=== PATIENT | female | born 1940 | race Caucasian/White ===

== ENCOUNTER 2017-08-09 13:52 | Inpatient (IN) | payer OTHER ==
[2017-08-09] MEDS: DIPHTH/TET/ACEL PERTUSS (ADULT) 0.5 ML VIAL IM (15:09)
[2017-08-09] MEDS: LIDOCAINE 1% (MDV) 10 ML INJ INJ (15:09)
[2017-08-09] MEDS: SOD CHLORIDE 0.9% 500 ML IV ×2 (15:09→16:24)
[2017-08-09 15:39] LABS: ADD MAN DIFF? NO
[2017-08-09 15:45] LABS: WHITE BLOOD COUNT 4.2 10^3/ul (4.8-10.8)
[2017-08-09 15:45] LABS: ABNORMAL IP MESSAGE 1; BASOPHILS % 0.2 % (0.0-2.0); EOSINOPHILS % 0.5 % (0.0-7.0); HEMATOCRIT 37.1 % (37.0-47.0); HEMOGLOBIN 13.6 g/dl (12.0-16.0); LYMPHOCYTES # 0.5 10^3/ul (0.8-2.9); LYMPHOCYTES % 11.8 % (15.0-51.0); MEAN CORPUSCULAR HEMOGLOBIN 29.7 pg (29.0-33.0); MEAN CORPUSCULAR HGB CONC 36.7 g/dl (32.0-37.0); MEAN PLATELET VOLUME 8.6 fl (7.4-10.4); MONOCYTE # 0.6 10^3/ul (0.3-0.9); MONOCYTES % 13.5 % (0.0-11.0); NEUTROPHILS % 73.3 % (39.0-77.0); PLATELET COUNT 255 10^3/UL (140-415); RED BLOOD COUNT 4.58 10^6/ul (4.20-5.40)
[2017-08-09 15:51] LABS: POSITIVE DIFF @See below
[2017-08-09 16:04] LABS: ANION GAP 17 (8-16); BLOOD UREA NITROGEN 13 mg/dl (7-20); CALCIUM 8.5 mg/dl (8.4-10.2); CARBON DIOXIDE 29 mmol/L (21-31); CHLORIDE 71 mmol/L (97-110); CREATININE 0.64 mg/dl (0.44-1.00); GLUCOSE 108 mg/dl (70-220)
[2017-08-09 16:08] LABS: POTASSIUM 2.7 mmol/L (3.5-5.1); SODIUM 114 mmol/L (135-144)
[2017-08-09] MEDS ORDERED: D5W-0.45 NACL + KCL 40 MEQ 1,000 ML IV (16:11)
[2017-08-09] MEDS: POTASSIUM CHLORIDE (SR) 20 MEQ TAB PO ×2 (16:27→18:51)
[2017-08-09 16:48] LABS: ADD UMIC NO; UR ASCORBIC ACID NEGATIVE (NEGATIVE); UR BILIRUBIN (Dip) NEGATIVE (NEGATIVE); UR BLOOD (Dip) NEGATIVE (NEGATIVE); UR CLARITY CLEAR (CLEAR); UR COLOR YELLOW (YELLOW); UR GLUCOSE (Dip) NEGATIVE (NEGATIVE); UR KETONES (Dip) 1+ mg/dL (NEGATIVE); UR LEUKOCYTE ESTERASE (Dip) NEGATIVE Leu/ul (NEGATIVE); UR NITRITE (Dip) NEGATIVE (NEGATIVE); UR SPECIFIC GRAVITY (Dip) 1.009 (1.003-1.030); UR TOTAL PROTEIN (Dip) NEGATIVE (NEGATIVE); UR UROBILINOGEN (Dip) NEGATIVE (NEGATIVE)
[2017-08-09 16:52] LABS: SODIUM,URINE RANDOM 54 mmol/L (30-90)
[2017-08-09 16:52] LABS: POTASSIUM,URINE RANDOM 28.9 mmol/L (25-125)
[2017-08-09 18:21] LABS: OSMOLALITY 232 mOsm/kg (280-295)
[2017-08-09 18:44] LABS: ANION GAP 15 (8-16); BLOOD UREA NITROGEN 11 mg/dl (7-20); CALCIUM 7.9 mg/dl (8.4-10.2); CARBON DIOXIDE 27 mmol/L (21-31); CHLORIDE 78 mmol/L (97-110); CREATININE 0.59 mg/dl (0.44-1.00); GLUCOSE 93 mg/dl (70-220)
[2017-08-09 18:51] LABS: POTASSIUM 2.7 mmol/L (3.5-5.1); SODIUM 117 mmol/L (135-144)
[2017-08-09 19:37] LABS: OSMOLALITY,URINE 312 mOsm/kg (250-1200)
[2017-08-09] MEDS ORDERED: LABETALOL HCL 20MG INJ IV (20:00)
[2017-08-09] MEDS: ENOXAPARIN 40 MG/0.4 ML SYG SC (20:12)
[2017-08-09] MEDS: ATORVASTATIN 10 MG TAB PO (20:23)
[2017-08-09] MEDS: MONTELUKAST 10 MG TAB PO (20:23)
[2017-08-09] MEDS: POTASSIUM CHLORIDE 40 MEQ in SOD CHLORIDE 0.9% 1,000 ML IV (20:23)
[2017-08-09] MEDS ORDERED: GLUCAGON 1 MG INJ IM (20:30)
[2017-08-09] MEDS ORDERED: GLUCOSE GEL 15 GRAM TUBE PO ×2 (20:30)
[2017-08-09] MEDS ORDERED: GLUCOSE GEL 15 GRAM TUBE BUCCAL (20:30)
[2017-08-09] MEDS ORDERED: DEXTROSE 50% 50 ML SYRINGE IV ×2 (20:30)
[2017-08-09] MEDS: LORAZEPAM 1 MG TAB PO (21:00)
[2017-08-09 22:54] LABS: ANION GAP 15 (8-16); BLOOD UREA NITROGEN 11 mg/dl (7-20); CARBON DIOXIDE 29 mmol/L (21-31); CHLORIDE 86 mmol/L (97-110); CREATININE 0.71 mg/dl (0.44-1.00); GLUCOSE 130 mg/dl (70-220); POTASSIUM 4.3 mmol/L (3.5-5.1); SODIUM 126 mmol/L (135-144)
[2017-08-10] MEDS: ACCU-CHEK XX (02:00)
[2017-08-10 03:27] LABS: ANION GAP 12 (8-16); BLOOD UREA NITROGEN 12 mg/dl (7-20); CALCIUM 8.8 mg/dl (8.4-10.2); CARBON DIOXIDE 27 mmol/L (21-31); CHLORIDE 94 mmol/L (97-110); CREATININE 0.67 mg/dl (0.44-1.00); GLUCOSE 140 mg/dl (70-220); POTASSIUM 4.2 mmol/L (3.5-5.1); SODIUM 129 mmol/L (135-144)
[2017-08-10] MEDS: ACETAMINOPHEN 325 MG TAB PO (03:48)
[2017-08-10] MEDS: DEXTROSE 5% 1,000 ML IV ×3 (04:35→21:49)
[2017-08-10] MEDS: INSULIN ASPART [NOVOLOG] 3 ML PEN SC ×3 (08:00→17:42)
[2017-08-10 08:49] LABS: ANION GAP 13 (8-16); BLOOD UREA NITROGEN 12 mg/dl (7-20); CALCIUM 9.1 mg/dl (8.4-10.2); CARBON DIOXIDE 27 mmol/L (21-31); CHLORIDE 92 mmol/L (97-110); CREATININE 0.65 mg/dl (0.44-1.00); GLUCOSE 157 mg/dl (70-220); POTASSIUM 3.7 mmol/L (3.5-5.1); SODIUM 128 mmol/L (135-144)
[2017-08-10] MEDS: FLUTICASONE 0.05% 16 GM NAS SPRAY NASAL (09:00)
[2017-08-10] MEDS: ENOXAPARIN 40 MG/0.4 ML SYG SC (10:18)
[2017-08-10 12:39] LABS: ANION GAP 14 (8-16); BLOOD UREA NITROGEN 11 mg/dl (7-20); CALCIUM 8.7 mg/dl (8.4-10.2); CARBON DIOXIDE 27 mmol/L (21-31); CHLORIDE 90 mmol/L (97-110); CREATININE 0.66 mg/dl (0.44-1.00); GLUCOSE 185 mg/dl (70-220); POTASSIUM 3.8 mmol/L (3.5-5.1); SODIUM 127 mmol/L (135-144)
[2017-08-10] MEDS: LISINOPRIL 20 MG TAB PO ×2 (14:14→21:48)
[2017-08-10 16:14] LABS: ANION GAP 16 (8-16); BLOOD UREA NITROGEN 12 mg/dl (7-20); CALCIUM 8.7 mg/dl (8.4-10.2); CARBON DIOXIDE 23 mmol/L (21-31); CHLORIDE 91 mmol/L (97-110); CREATININE 0.56 mg/dl (0.44-1.00); GLUCOSE 131 mg/dl (70-220); POTASSIUM 3.6 mmol/L (3.5-5.1); SODIUM 126 mmol/L (135-144)
[2017-08-10] MEDS: DEXTROSE 5% 250 ML IV (16:30)
[2017-08-10 20:35] LABS: ANION GAP 16 (8-16); BLOOD UREA NITROGEN 14 mg/dl (7-20); CARBON DIOXIDE 28 mmol/L (21-31); CHLORIDE 88 mmol/L (97-110); CREATININE 0.63 mg/dl (0.44-1.00); GLUCOSE 82 mg/dl (70-220); POTASSIUM 4.1 mmol/L (3.5-5.1); SODIUM 128 mmol/L (135-144)
[2017-08-10] MEDS: ATORVASTATIN 10 MG TAB PO (21:50)
[2017-08-10] MEDS: MONTELUKAST 10 MG TAB PO (21:51)
[2017-08-10] MEDS: LORAZEPAM 1 MG TAB PO (22:02)
[2017-08-11] MEDS: ACCU-CHEK XX (01:30)
[2017-08-11] MEDS: FLUTICASONE 0.05% 16 GM NAS SPRAY NASAL ×2 (05:32→09:28)
[2017-08-11] MEDS: DEXTROSE 5% 1,000 ML IV (05:39)
[2017-08-11] MEDS: ALBUTEROL HFA 8 GM INHALER INH ×2 (05:55→09:28)
[2017-08-11 06:02] LABS: ANION GAP 13 (8-16); BLOOD UREA NITROGEN 10 mg/dl (7-20); CALCIUM 8.9 mg/dl (8.4-10.2); CARBON DIOXIDE 27 mmol/L (21-31); CHLORIDE 89 mmol/L (97-110); CREATININE 0.58 mg/dl (0.44-1.00); GLUCOSE 150 mg/dl (70-220); POTASSIUM 3.4 mmol/L (3.5-5.1); SODIUM 126 mmol/L (135-144)
[2017-08-11] MEDS: LISINOPRIL 20 MG TAB PO (09:06)
[2017-08-11] MEDS: INSULIN ASPART [NOVOLOG] 3 ML PEN SC ×2 (09:10→12:51)
[2017-08-11] MEDS: ENOXAPARIN 40 MG/0.4 ML SYG SC (09:11)
[2017-08-11 12:21] LABS: ANION GAP 15 (8-16); BLOOD UREA NITROGEN 9 mg/dl (7-20); CARBON DIOXIDE 26 mmol/L (21-31); CHLORIDE 92 mmol/L (97-110); GLUCOSE 156 mg/dl (70-220); POTASSIUM 3.5 mmol/L (3.5-5.1); SODIUM 129 mmol/L (135-144)
[2017-08-11] MEDS: ALBUTEROL 0.083% (NEB) 2.5 MG/3 ML AMP HHN (13:11)
[2017-08-11] MEDS: LORAZEPAM 0.5 MG TAB PO (15:30)
== END 2017-08-11 18:25 | disposition home health service (06) | DRG 605 ==
LOC: ICU 17:23 → MS1 08-10 07:47 → E/R 13:52 → MS1 08-10 17:29
PROC: 0HQ0XZZ Repair Scalp Skin, External Approach (ICD-10-PCS; principal; 2017-08-09)
DX: S01.01XA Laceration without foreign body of scalp, initial encounter (principal); E87.1 Hypo-osmolality and hyponatremia; E11.9 Type 2 diabetes mellitus without complications; I10 Essential (primary) hypertension; R42 Dizziness and giddiness; E87.6 Hypokalemia; F41.9 Anxiety disorder, unspecified; J45.909 Unspecified asthma, uncomplicated; W18.30XA Fall on same level, unspecified, initial encounter; Y92.009 Unspecified place in unspecified non-institutional (private) residence as the place of occurrence of the external cause; Z79.82 Long term (current) use of aspirin
CPT/HCPCS: 70450; 71045; 80048; 81003; 82436; 82962; 83930; 83935; 84133; 84300; 84484; 85025; 87081; 90471; 90715; 93005; 94664; 96372; 96374; 97162; 99291-25

== ENCOUNTER 2017-11-04 17:24 | Emergency (ER) | payer OTHER ==
[2017-11-04 17:47] LABS: ADD MAN DIFF? NO
[2017-11-04 17:50] LABS: BASOPHILS % 0.6 % (0.0-2.0); EOSINOPHILS # 0.1 10^3/ul (0.0-0.5); EOSINOPHILS % 1.5 % (0.0-7.0); HEMATOCRIT 38.3 % (37.0-47.0); HEMOGLOBIN 12.6 g/dl (12.0-16.0); MEAN CORPUSCULAR HEMOGLOBIN 29.6 pg (29.0-33.0); MEAN CORPUSCULAR HGB CONC 32.9 g/dl (32.0-37.0); MEAN CORPUSCULAR VOLUME 89.9 fl (82.0-101.0); MEAN PLATELET VOLUME 8.5 fl (7.4-10.4); MONOCYTE # 0.4 10^3/ul (0.3-0.9); MONOCYTES % 8.2 % (0.0-11.0); NEUTROPHIL # 3.8 10^3/ul (1.6-7.5); NEUTROPHILS % 69.8 % (39.0-77.0); PLATELET COUNT 276 10^3/UL (140-415); RED BLOOD COUNT 4.26 10^6/ul (4.20-5.40); RED CELL DISTRIBUTION WIDTH 12.7 % (11.5-14.5)
[2017-11-04 17:50] LABS: WHITE BLOOD COUNT 5.4 10^3/ul (4.8-10.8)
[2017-11-04 18:10] LABS: INR 0.95; PARTIAL THROMBOPLASTIN TIME 32.2 Sec (25.0-35.0); PROTIME 12.8 Sec (11.9-14.9)
[2017-11-04 18:15] LABS: ANION GAP 15 (8-16); BLOOD UREA NITROGEN 16 mg/dl (7-20); CALCIUM 7.9 mg/dl (8.4-10.2); CARBON DIOXIDE 23 mmol/L (21-31); CHLORIDE 103 mmol/L (97-110); CREATININE 0.71 mg/dl (0.44-1.00); GLUCOSE 192 mg/dl (70-220); SODIUM 138 mmol/L (135-144)
[2017-11-04 18:20] LABS: POTASSIUM 2.9 mmol/L (3.5-5.1)
[2017-11-04 18:28] LABS: TROPONIN-I 0.037 ng/ml (0.000-0.120)
[2017-11-04 18:56] LABS: MAGNESIUM 1.7 mg/dl (1.7-2.5)
[2017-11-04] MEDS: MECLIZINE 12.5 MG TAB PO (19:14)
[2017-11-04] MEDS: POTASSIUM CHLORIDE (SR) 20 MEQ TAB PO (19:15)
== END 2017-11-04 19:46 | disposition home or self-care (01) ==
LOC: E/R 17:24
DX: E87.6 Hypokalemia (principal); R42 Dizziness and giddiness; E11.9 Type 2 diabetes mellitus without complications; I10 Essential (primary) hypertension; Z79.84 Long term (current) use of oral hypoglycemic drugs
CPT/HCPCS: 36415; 70450; 71045; 80048; 83735; 84484; 85025; 85610; 85730; 99285-25